=== PATIENT | female | born 1960 | race African-American/Black ===

== ENCOUNTER 2017-09-20 06:37 | Emergency (ER) | payer MEDICAID ==
[~2017-09-20] VITALS: Ht 162.6 cm; Wt 77.0 kg
[~2017-09-20 06:37] MED LIST: AMLO10TA4 PO; ATOR80TA PO; GABA-531 PO; LISI-604 PO; METF500T4 PO; NITR0.4T49 SL; TRAM50TA3 PO
[2017-09-20] MEDS ORDERED: IBUPROFEN 800MG TABLET PO ONE (08:00)
[2017-09-20] MEDS ORDERED: ONDANSETRON HCL 4MG/2ML VIAL IV STA (08:50)
[2017-09-20] MEDS ORDERED: MORPHINE SULFATE 4 MG/ML CPJ (NOT FOR IM USE) IV STA (08:50)
[2017-09-20 09:19] LABS: BASOPHILS % 0.4 % (0.0-2.0); HEMATOCRIT. 40.2 % (36.0-48.0); HEMOGLOBIN. 13.2 g/dL (12.0-16.0); LYMPHOCYTES % 13.4 % (20.0-50.0); MEAN CORPUSCULAR HEMOGLOBIN 28.3 pg (28.0-32.0); MEAN CORPUSCULAR VOLUME 85.9 fL (81.0-99.0); MEAN PLATELET VOLUME 8.8 fl (7.4-10.4); MONOCYTES % 4.2 % (2.0-8.0); PLATELET 297 x1000/uL (130-400); RED BLOOD CELL COUNT 4.68 mill/uL (4.2-5.4); RED CELL DISTRIBUTION WIDTH 15.2 % (11.6-14.6)
[2017-09-20 09:26] LABS: CHLORIDE 111 mEq/L (98-107)
[2017-09-20 09:29] LABS: PARTIAL THROMBOPLASTIN TIME 24.8 sec (23.4-31.0); PROTHROMBIN TIME 10.5 sec (9.4-11.6)
[2017-09-20] MEDS ORDERED: CLONIDINE 0.1MG TABLET PO ONE (11:45)
[2017-09-20 11:47] LABS: *AMPHETAMINES SCREEN URINE NEGATIVE (NEGATIVE); *BARBITURATES SCREEN URINE NEGATIVE (NEGATIVE); *COCAINE SCREEN URINE NEGATIVE (NEGATIVE)
[2017-09-20 11:48] VITALS: BP 180/87
[2017-09-20 11:48] LABS: *BENZODIAZEPINES SCREEN URINE NEGATIVE (NEGATIVE); CANNABINOID URINE SCREEN PRESUMTIVE POSITIVE (NEGATIVE); METHADONE URINE SCREEN NEGATIVE (NEGATIVE); OPIATES URINE SCREEN NEGATIVE (NEGATIVE); PHENCYCLIDINE URINE SCREEN NEGATIVE (NEGATIVE)
== END 2017-09-20 12:00 | disposition short-term general hospital (02) ==
LOC: ER 06:37
DX: S50.12XA Contusion of left forearm, initial encounter (principal); I11.9 Hypertensive heart disease without heart failure; E11.9 Type 2 diabetes mellitus without complications; F17.200 Nicotine dependence, unspecified, uncomplicated; Z79.84 Long term (current) use of oral hypoglycemic drugs; Z90.49 Acquired absence of other specified parts of digestive tract; Y00.XXXA Assault by blunt object, initial encounter; Y93.89 Activity, other specified; Y92.018 Other place in single-family (private) house as the place of occurrence of the external cause
CPT/HCPCS: 36415; 73080; 73090; 80048; 80305; 81025; 85025; 85610; 85730; 96374; 96375; 99291; G0482; J2270; J2405

== ENCOUNTER 2018-08-28 11:07 | Inpatient (IN) | payer MEDICAID ==
[~2018-08-28] VITALS: Ht 160 cm; Wt 80.1 kg
[~2018-08-28 11:07] MED LIST changes: +METF-414 PO; -METF500T4 PO
[2018-08-28] MEDS ORDERED: MORPHINE SULFATE 4 MG/ML CPJ (NOT FOR IM USE) IV ONE (12:00)
[2018-08-28 12:21] LABS: BASOPHILS % 1.5 % (0.0-2.0); CHLORIDE 115 mEq/L (98-107); EOSINOPHILS % 4.9 % (0.0-5.0); HEMATOCRIT. 37.9 % (36.0-48.0); HEMOGLOBIN. 12.4 g/dL (12.0-16.0); LYMPHOCYTES % 43.9 % (20.0-50.0); MEAN CORPUSCULAR HEMOGLOBIN 28.2 pg (28.0-32.0); MEAN CORPUSCULAR VOLUME 86.1 fL (81.0-99.0); MEAN PLATELET VOLUME 8.4 fl (7.4-10.4); MONOCYTES % 6.4 % (2.0-8.0); NEUTROPHILS % 43.3 % (40.0-76.0); PLATELET 309 x1000/uL (130-400); RED CELL DISTRIBUTION WIDTH 15.7 % (11.6-14.6)
[2018-08-28 14:22] LABS: CLARITY URINE CLOUDY (CLEAR); COLOR URINE YELLOW (YELLOW); KETONES URINE 1+ (NEGATIVE); LEUKOCYTE ESTERASE URINE NEGATIVE (NEGATIVE); NITRITE URINE NEGATIVE (NEGATIVE); OCCULT BLOOD URINE NEGATIVE (NEGATIVE); PROTEIN URINE 1+ (NEGATIVE); SPECIFIC GRAVITY URINE 1.023 (1.005-1.030)
[2018-08-28] MEDS ORDERED: ASPIRIN 325MG EC TABLET PO NR (14:45)
[2018-08-28] MEDS ORDERED: KETOROLAC 30MG/ML VIAL IV NR (14:45)
[2018-08-28] MEDS ORDERED: ZOLPIDEM TARTRATE 5MG TABLET PO PRN (18:00)
[2018-08-28] MEDS ORDERED: ACETAMINOPHEN 325MG TABLET PO PRN (18:00)
[2018-08-28] MEDS ORDERED: CLONIDINE 0.1MG TABLET PO PRN (18:00)
[2018-08-28] MEDS ORDERED: ONDANSETRON HCL 4MG/2ML INJ IV PRN (18:00)
[2018-08-28 18:55] LABS: *AMPHETAMINES SCREEN URINE NEGATIVE (NEGATIVE); *BARBITURATES SCREEN URINE NEGATIVE (NEGATIVE); CANNABINOID URINE SCREEN PRESUMTIVE POSITIVE (NEGATIVE); PHENCYCLIDINE URINE SCREEN NEGATIVE (NEGATIVE)
[2018-08-28 18:56] LABS: *BENZODIAZEPINES SCREEN URINE NEGATIVE (NEGATIVE); *COCAINE SCREEN URINE NEGATIVE (NEGATIVE); METHADONE URINE SCREEN NEGATIVE (NEGATIVE); OPIATES URINE SCREEN PRESUMTIVE POSITIVE (NEGATIVE)
[2018-08-28] MEDS: MORPHINE SULFATE 4 MG/ML CPJ (NOT FOR IM USE) IV PRN (19:41)
[2018-08-28] MEDS ORDERED: AMLODIPINE 5MG TABLET PO SCH (20:17)
[2018-08-28] MEDS ORDERED: HYDRALAZINE HCL 50MG TABLET PO NR (21:15)
[2018-08-29] MEDS: MORPHINE SULFATE 4 MG/ML CPJ (NOT FOR IM USE) IV PRN ×4 (01:24→21:38)
[2018-08-29 02:30] VITALS: BP 157/78
[2018-08-29 04:00] VITALS: BP 148/71
[2018-08-29 08:16] VITALS: BP 156/84
[2018-08-29] MEDS: AMLODIPINE 5MG TABLET PO SCH ×2 (09:11→21:08)
[2018-08-29] MEDS: HYDRALAZINE HCL 50MG TABLET PO SCH ×2 (09:16→21:00)
[2018-08-29] MEDS ORDERED: INFLUENZA VIRUS VACCINE(AFLURIA) 0.5ML SYR IM ONE (10:00)
[2018-08-29 10:19] LABS: BASOPHILS % 0.2 % (0.0-2.0); EOSINOPHILS % 6.3 % (0.0-5.0); HEMATOCRIT. 36.7 % (36.0-48.0); HEMOGLOBIN. 11.9 g/dL (12.0-16.0); LYMPHOCYTES % 35.9 % (20.0-50.0); MEAN CORPUSCULAR HEMOGLOBIN 28.5 pg (28.0-32.0); MEAN CORPUSCULAR VOLUME 87.9 fL (81.0-99.0); MEAN PLATELET VOLUME 8.5 fl (7.4-10.4); MONOCYTES % 8.7 % (2.0-8.0); NEUTROPHILS % 48.9 % (40.0-76.0); PLATELET 284 x1000/uL (130-400); RED BLOOD CELL COUNT 4.18 mill/uL (4.2-5.4); RED CELL DISTRIBUTION WIDTH 15.7 % (11.6-14.6)
[2018-08-29 10:26] LABS: CHLORIDE 114 mEq/L (98-107)
[2018-08-29 11:30] VITALS: BP 148/83
[2018-08-29] MEDS ORDERED: DEXTROSE 50% WATER 50ML SYRINGE IV PRN (11:45)
[2018-08-29] MEDS ORDERED: DIPHENHYDRAMINE 50MG/ML VIAL IV PRN (11:45)
[2018-08-29] MEDS: INSULIN LISPRO 100 UNITS/ML SUBCUT SCH ×3 (12:19→21:00)
[2018-08-29] MEDS: BLOOD SUGAR DIAGNOSTIC STRIP TEST SCH ×3 (12:19→21:00)
[2018-08-29 12:21] LABS: T4 FREE 0.83 ng/dL (0.76-1.46)
[2018-08-29] MEDS: LISINOPRIL 10MG TABLET PO SCH ×2 (13:36→21:00)
[2018-08-29 15:55] VITALS: BP 124/76
[2018-08-29 20:08] VITALS: BP 123/51
[2018-08-29] MEDS: METOPROLOL TARTRATE 25MG TABLET PO SCH (21:00)
[2018-08-29] MEDS: ATORVASTATIN CALCIUM 40MG TABLET PO SCH (21:08)
[2018-08-30] VITALS: BP 141/64
[2018-08-30 04:00] VITALS: BP 138/66
[2018-08-30] MEDS: BLOOD SUGAR DIAGNOSTIC STRIP TEST SCH ×4 (06:07→21:00)
[2018-08-30] MEDS: OMEPRAZOLE 20MG CAPSULE EXTENDED RELEASE PO SCH (06:11)
[2018-08-30] MEDS: HYDROCODONE/ACETAMINOPHEN 5/325MG TABLET PO PRN (06:16)
[2018-08-30 06:31] LABS: BASOPHILS % 0.7 % (0.0-2.0); EOSINOPHILS % 6.5 % (0.0-5.0); HEMATOCRIT. 38.2 % (36.0-48.0); HEMOGLOBIN. 12.5 g/dL (12.0-16.0); LYMPHOCYTES % 33.7 % (20.0-50.0); MEAN CORPUSCULAR HEMOGLOBIN 28.2 pg (28.0-32.0); MEAN CORPUSCULAR VOLUME 86.5 fL (81.0-99.0); MEAN PLATELET VOLUME 8.4 fl (7.4-10.4); MONOCYTES % 9.5 % (2.0-8.0); NEUTROPHILS % 49.6 % (40.0-76.0); PLATELET 300 x1000/uL (130-400); RED BLOOD CELL COUNT 4.42 mill/uL (4.2-5.4); RED CELL DISTRIBUTION WIDTH 16.1 % (11.6-14.6)
[2018-08-30 06:33] LABS: CHLORIDE 114 mEq/L (98-107)
[2018-08-30] MEDS: INSULIN LISPRO 100 UNITS/ML SUBCUT SCH ×4 (07:38→21:00)
[2018-08-30 08:00] VITALS: BP 153/83
[2018-08-30] MEDS: METOPROLOL TARTRATE 25MG TABLET PO SCH (08:09)
[2018-08-30] MEDS: LISINOPRIL 10MG TABLET PO SCH ×2 (08:10→21:35)
[2018-08-30] MEDS: HYDRALAZINE HCL 50MG TABLET PO SCH ×2 (08:10→21:31)
[2018-08-30] MEDS: AMLODIPINE 5MG TABLET PO SCH ×2 (08:10→21:30)
[2018-08-30] MEDS: MORPHINE SULFATE 4 MG/ML CPJ (NOT FOR IM USE) IV PRN ×2 (11:49→22:04)
[2018-08-30 12:00] VITALS: BP 140/75
[2018-08-30 15:28] VITALS: BP 139/78
[2018-08-30 20:00] VITALS: BP 152/75
[2018-08-30] MEDS: ATORVASTATIN CALCIUM 40MG TABLET PO SCH (21:33)
[2018-08-30] MEDS: METOPROLOL TARTRATE 50MG TABLET PO SCH (21:33)
[2018-08-31] VITALS: BP 133/65
[2018-08-31 04:00] VITALS: BP 146/72
[2018-08-31] MEDS: OMEPRAZOLE 20MG CAPSULE EXTENDED RELEASE PO SCH (06:40)
[2018-08-31 07:05] LABS: BASOPHILS % 0.6 % (0.0-2.0); EOSINOPHILS % 6.9 % (0.0-5.0); HEMATOCRIT. 39.8 % (36.0-48.0); HEMOGLOBIN. 12.9 g/dL (12.0-16.0); LYMPHOCYTES % 36.2 % (20.0-50.0); MEAN CORPUSCULAR HEMOGLOBIN 28.4 pg (28.0-32.0); MEAN CORPUSCULAR VOLUME 87.1 fL (81.0-99.0); MEAN PLATELET VOLUME 8.9 fl (7.4-10.4); NEUTROPHILS % 48.3 % (40.0-76.0); PLATELET 320 x1000/uL (130-400); RED BLOOD CELL COUNT 4.56 mill/uL (4.2-5.4); RED CELL DISTRIBUTION WIDTH 15.8 % (11.6-14.6)
[2018-08-31] MEDS: BLOOD SUGAR DIAGNOSTIC STRIP TEST SCH ×4 (07:35→21:15)
[2018-08-31] MEDS: INSULIN LISPRO 100 UNITS/ML SUBCUT SCH ×4 (07:50→21:00)
[2018-08-31 08:00] VITALS: BP 170/79
[2018-08-31] MEDS: HYDRALAZINE HCL 50MG TABLET PO SCH ×2 (08:14→21:11)
[2018-08-31] MEDS: METOPROLOL TARTRATE 50MG TABLET PO SCH ×2 (08:14→21:19)
[2018-08-31] MEDS: AMLODIPINE 5MG TABLET PO SCH ×2 (08:14→21:36)
[2018-08-31] MEDS: LISINOPRIL 10MG TABLET PO SCH (08:15)
[2018-08-31] MEDS: MORPHINE SULFATE 4 MG/ML CPJ (NOT FOR IM USE) IV PRN ×2 (08:25→17:44)
[2018-08-31 12:00] VITALS: BP 135/55
[2018-08-31] MEDS: HYDROCODONE/ACETAMINOPHEN 5/325MG TABLET PO PRN ×2 (12:18→21:15)
[2018-08-31 16:00] VITALS: BP 145/79
[2018-08-31 20:00] VITALS: BP 134/61
[2018-08-31] MEDS: ATORVASTATIN CALCIUM 40MG TABLET PO SCH (21:11)
[2018-08-31] MEDS: LISINOPRIL 20MG TABLET PO SCH (21:17)
[2018-09-01] VITALS: BP 128/65
[2018-09-01 04:00] VITALS: BP 130/61
[2018-09-01] MEDS: MORPHINE SULFATE 4 MG/ML CPJ (NOT FOR IM USE) IV PRN (04:00)
[2018-09-01 06:58] LABS: BASOPHILS % 0.4 % (0.0-2.0); HEMATOCRIT. 39.1 % (36.0-48.0); HEMOGLOBIN. 12.8 g/dL (12.0-16.0); MEAN CORPUSCULAR HEMOGLOBIN 28.3 pg (28.0-32.0); MEAN CORPUSCULAR VOLUME 86.6 fL (81.0-99.0); MEAN PLATELET VOLUME 8.7 fl (7.4-10.4); MONOCYTES % 7.2 % (2.0-8.0); NEUTROPHILS % 41.4 % (40.0-76.0); PLATELET 302 x1000/uL (130-400); RED BLOOD CELL COUNT 4.52 mill/uL (4.2-5.4); RED CELL DISTRIBUTION WIDTH 15.7 % (11.6-14.6)
[2018-09-01] MEDS: BLOOD SUGAR DIAGNOSTIC STRIP TEST SCH ×2 (07:20→11:56)
[2018-09-01 07:49] VITALS: BP 116/77
[2018-09-01] MEDS: INSULIN LISPRO 100 UNITS/ML SUBCUT SCH ×2 (07:50→12:50)
[2018-09-01] MEDS ORDERED: FAMOTIDINE 20MG TABLET PO SCH (09:00)
[2018-09-01] MEDS: LISINOPRIL 20MG TABLET PO SCH (09:11)
[2018-09-01] MEDS: AMLODIPINE 5MG TABLET PO SCH (09:11)
[2018-09-01] MEDS: METOPROLOL TARTRATE 50MG TABLET PO SCH (09:11)
[2018-09-01] MEDS: HYDROCODONE/ACETAMINOPHEN 5/325MG TABLET PO PRN ×2 (09:12→14:45)
[2018-09-01] MEDS: HYDRALAZINE HCL 50MG TABLET PO SCH (09:12)
[2018-09-01 12:00] VITALS: BP 133/88
[2018-09-01 15:06] VITALS: BP 130/76
[2018-09-01 16:00] VITALS: BP 150/83
== END 2018-09-01 17:28 | disposition home or self-care (01) | DRG 199 ==
LOC: ER 11:07 → 6WST 14:11 → ENRESERV 08-29 01:11
PROVIDERS: ADMIT Internal Medicine; ATTEND Internal Medicine
DX: I16.0 Hypertensive urgency (principal); E87.0 Hyperosmolality and hypernatremia; E11.319 Type 2 diabetes mellitus with unspecified diabetic retinopathy without macular edema; E87.8 Other disorders of electrolyte and fluid balance, not elsewhere classified; E66.9 Obesity, unspecified; E78.5 Hyperlipidemia, unspecified; E87.6 Hypokalemia; I10 Essential (primary) hypertension; J44.9 Chronic obstructive pulmonary disease, unspecified; Z87.891 Personal history of nicotine dependence; J45.909 Unspecified asthma, uncomplicated; Z82.49 Family history of ischemic heart disease and other diseases of the circulatory system; Z90.49 Acquired absence of other specified parts of digestive tract; M10.9 Gout, unspecified; Z71.3 Dietary counseling and surveillance; Z68.31 Body mass index [BMI] 31.0-31.9, adult; Z79.84 Long term (current) use of oral hypoglycemic drugs
CPT/HCPCS: 36415; 70551; 73502; 80048; 80061; 80305; 82962; 83036; 84146; 84439; 84443; 84481; 84484; 90686; 93005; 93306; 93970; 96374; 96375; 97116; 97162; 99285; J1815; J1885; J2270; A4315

== ENCOUNTER 2019-03-01 05:34 | Inpatient (IN) | payer MEDICAID ==
[~2019-03-01] VITALS: Ht 160 cm; Wt 74.4 kg
[~2019-03-01 05:34] MED LIST changes: -AMLO10TA4 PO; -ATOR80TA PO; -LISI-604 PO
[2019-03-01] MEDS ORDERED: SODIUM CHLORIDE 0.9% 1,000 ML IV ONE (06:52)
[2019-03-01] MEDS ORDERED: OXYCODONE HCL/ACETAMINOPHEN 5/325MG TABLET PO ONE (07:00)
[2019-03-01] MEDS ORDERED: KETOROLAC 30MG/ML VIAL IV ONE (07:00)
[2019-03-01 07:27] LABS: EOSINOPHILS % 3.3 % (0.0-5.0); HEMATOCRIT. 34.6 % (36.0-48.0); HEMOGLOBIN. 11.4 g/dL (12.0-16.0); LYMPHOCYTES % 30.2 % (20.0-50.0); MEAN CORPUSCULAR HEMOGLOBIN 28.7 pg (28.0-32.0); MEAN PLATELET VOLUME 8.9 fl (7.4-10.4); MONOCYTES % 7.9 % (2.0-8.0); NEUTROPHILS % 57.6 % (40.0-76.0); PLATELET 299 x1000/uL (130-400); RED BLOOD CELL COUNT 3.98 mill/uL (4.2-5.4); RED CELL DISTRIBUTION WIDTH 15.3 % (11.6-14.6)
[2019-03-01 07:30] LABS: CHLORIDE 110 mEq/L (98-107)
[2019-03-01] MEDS ORDERED: POTASSIUM CHLORIDE 20MEQ TABLET SR PO ONE (08:15)
[2019-03-01] MEDS ORDERED: HYDROCHLOROTHIAZIDE 25MG TABLET PO ONE (08:30)
[2019-03-01] MEDS ORDERED: HYDRALAZINE 20MG/ML VIAL IV ONE (08:30)
[2019-03-01] MEDS ORDERED: ACETAMINOPHEN 325MG TABLET PO PRN (09:30)
[2019-03-01] MEDS ORDERED: ONDANSETRON HCL 4MG/2ML INJ IV PRN (09:30)
[2019-03-01] MEDS ORDERED: AMLODIPINE 5MG TABLET PO NR (09:45)
[2019-03-01] MEDS ORDERED: POTASSIUM CHLORIDE 20MEQ TABLET SR PO NR (11:15)
[2019-03-01] MEDS: HYDRALAZINE HCL 100MG TABLET PO SCH ×2 (12:50→21:26)
[2019-03-01] MEDS: HYDROCODONE/ACETAMINOPHEN 5/325MG TABLET PO PRN ×2 (12:50→20:11)
[2019-03-01] MEDS: SODIUM CHLORIDE 0.9% 1,000 ML IV SCH (12:51)
[2019-03-01 15:16] VITALS: BP 155/92
[2019-03-01 16:00] VITALS: BP 161/88
[2019-03-01 17:20] LABS: CLARITY URINE CLEAR (CLEAR); COLOR URINE YELLOW (YELLOW); KETONES URINE NEGATIVE (NEGATIVE); LEUKOCYTE ESTERASE URINE NEGATIVE (NEGATIVE); NITRITE URINE NEGATIVE (NEGATIVE); OCCULT BLOOD URINE NEGATIVE (NEGATIVE); PROTEIN URINE NEGATIVE (NEGATIVE); SPECIFIC GRAVITY URINE 1.009 (1.005-1.030); UROBILINOGEN URINE 0.2 E.U./dL (0.2-1.0)
[2019-03-01 17:44] LABS: *AMPHETAMINES SCREEN URINE NEGATIVE (NEGATIVE); *BARBITURATES SCREEN URINE NEGATIVE (NEGATIVE); *BENZODIAZEPINES SCREEN URINE NEGATIVE (NEGATIVE)
[2019-03-01 17:45] LABS: *COCAINE SCREEN URINE NEGATIVE (NEGATIVE); CANNABINOID URINE SCREEN PRESUMTIVE POSITIVE (NEGATIVE); METHADONE URINE SCREEN NEGATIVE (NEGATIVE); OPIATES URINE SCREEN NEGATIVE (NEGATIVE); PHENCYCLIDINE URINE SCREEN NEGATIVE (NEGATIVE)
[2019-03-01 20:00] VITALS: BP 153/76
[2019-03-01] MEDS ORDERED: HYDRALAZINE HCL 100MG TABLET PO SCH (21:00)
[2019-03-01] MEDS: ATORVASTATIN CALCIUM 40MG TABLET PO SCH (21:25)
[2019-03-01] MEDS: AMLODIPINE 5MG TABLET PO SCH (21:27)
[2019-03-02] VITALS (7 sets, daily range): BP systolic 126–180; BP diastolic 61–88
[2019-03-02] MEDS: HYDROCODONE/ACETAMINOPHEN 5/325MG TABLET PO PRN ×4 (03:06→21:33)
[2019-03-02] MEDS: CLONIDINE 0.1MG TABLET PO PRN ×2 (03:07→16:09)
[2019-03-02] MEDS: HYDRALAZINE HCL 100MG TABLET PO SCH ×3 (05:47→21:24)
[2019-03-02] MEDS: SODIUM CHLORIDE 0.9% 1,000 ML IV SCH (05:49)
[2019-03-02 07:00] LABS: BASOPHILS % 0.9 % (0.0-2.0); EOSINOPHILS % 4.4 % (0.0-5.0); LYMPHOCYTES % 29.9 % (20.0-50.0); MEAN CORPUSCULAR HEMOGLOBIN 28.5 pg (28.0-32.0); MEAN CORPUSCULAR VOLUME 88.3 fL (81.0-99.0); MEAN PLATELET VOLUME 8.9 fl (7.4-10.4); MONOCYTES % 6.6 % (2.0-8.0); NEUTROPHILS % 58.2 % (40.0-76.0); PLATELET 280 x1000/uL (130-400); RED BLOOD CELL COUNT 4.19 mill/uL (4.2-5.4); RED CELL DISTRIBUTION WIDTH 15.6 % (11.6-14.6)
[2019-03-02] MEDS: AMLODIPINE 5MG TABLET PO SCH ×2 (09:46→21:23)
[2019-03-02] MEDS: CLONIDINE 0.1MG TABLET PO SCH ×2 (14:00→23:06)
[2019-03-02] MEDS: ATORVASTATIN CALCIUM 40MG TABLET PO SCH (21:23)
[2019-03-03] VITALS: BP_SYST 130; BP_SYST 146; BP_SYST 156; BP_DIAS 75; BP_DIAS 77; BP_DIAS 81
[2019-03-03] MEDS: SODIUM CHLORIDE 0.9% 1,000 ML IV SCH ×2 (03:15→05:06)
[2019-03-03 04:00] VITALS: BP 143/79
[2019-03-03] MEDS: HYDRALAZINE HCL 100MG TABLET PO SCH ×4 (04:29→20:30)
[2019-03-03] MEDS: CLONIDINE 0.1MG TABLET PO SCH ×3 (05:13→21:19)
[2019-03-03] MEDS: HYDROCODONE/ACETAMINOPHEN 5/325MG TABLET PO PRN ×4 (05:14→21:32)
[2019-03-03] MEDS: AMLODIPINE 5MG TABLET PO SCH ×2 (09:36→21:00)
[2019-03-03 12:00] VITALS: BP 126/68
[2019-03-03 16:00] VITALS: BP 152/90
[2019-03-03 20:00] VITALS: BP 106/70
[2019-03-03] MEDS: ATORVASTATIN CALCIUM 40MG TABLET PO SCH (21:21)
[2019-03-04] VITALS: BP 116/61
[2019-03-04 04:00] VITALS: BP 130/67
[2019-03-04] MEDS: HYDRALAZINE HCL 100MG TABLET PO SCH ×3 (04:30→20:16)
[2019-03-04] MEDS: SODIUM CHLORIDE 0.9% 1,000 ML IV SCH ×2 (05:38→23:38)
[2019-03-04] MEDS: CLONIDINE 0.1MG TABLET PO SCH ×3 (05:52→21:23)
[2019-03-04] MEDS: HYDROCODONE/ACETAMINOPHEN 5/325MG TABLET PO PRN ×4 (05:52→21:23)
[2019-03-04 08:00] VITALS: BP 143/71
[2019-03-04] MEDS: AMLODIPINE 5MG TABLET PO SCH ×2 (09:38→20:16)
[2019-03-04 12:00] VITALS: BP 110/71
[2019-03-04 16:00] VITALS: BP 118/79
[2019-03-04 20:00] VITALS: BP_SYST 114; BP_SYST 161; BP_DIAS 65; BP_DIAS 88
[2019-03-04] MEDS: ATORVASTATIN CALCIUM 40MG TABLET PO SCH (21:22)
[2019-03-05] VITALS: BP 134/65
[2019-03-05] MEDS: HYDROCODONE/ACETAMINOPHEN 5/325MG TABLET PO PRN ×4 (02:24→21:43)
[2019-03-05 04:00] VITALS: BP 106/70
[2019-03-05] MEDS: HYDRALAZINE HCL 100MG TABLET PO SCH ×3 (04:30→21:42)
[2019-03-05] MEDS: CLONIDINE 0.1MG TABLET PO SCH ×3 (05:34→23:12)
[2019-03-05 07:53] VITALS: BP 143/70
[2019-03-05] MEDS: AMLODIPINE 5MG TABLET PO SCH ×2 (08:59→21:43)
[2019-03-05 12:35] VITALS: BP 129/55
[2019-03-05 16:19] VITALS: BP 137/66
[2019-03-05 20:00] VITALS: BP 172/82
[2019-03-05] MEDS: ATORVASTATIN CALCIUM 40MG TABLET PO SCH (21:43)
[2019-03-06 00:27] VITALS: BP 151/95
[2019-03-06 02:48] VITALS: BP 146/82
[2019-03-06] MEDS: HYDROCODONE/ACETAMINOPHEN 5/325MG TABLET PO PRN (02:51)
[2019-03-06 04:00] VITALS: BP 135/71
[2019-03-06] MEDS: HYDRALAZINE HCL 100MG TABLET PO SCH (05:02)
[2019-03-06 05:10] VITALS: BP 152/81
[2019-03-06] MEDS: CLONIDINE 0.1MG TABLET PO SCH (05:37)
== END 2019-03-06 06:05 | disposition home or self-care (01) | DRG 48 ==
LOC: ER 05:34 → 7WST 09:16 → ENRESERV 09:58
PROVIDERS: ADMIT Internal Medicine; ATTEND Internal Medicine
DX: G90.8 Other disorders of autonomic nervous system (principal); N17.0 Acute kidney failure with tubular necrosis; E87.6 Hypokalemia; E87.8 Other disorders of electrolyte and fluid balance, not elsewhere classified; E11.9 Type 2 diabetes mellitus without complications; I16.0 Hypertensive urgency; E78.5 Hyperlipidemia, unspecified; F12.90 Cannabis use, unspecified, uncomplicated; I10 Essential (primary) hypertension; J45.909 Unspecified asthma, uncomplicated; Z90.49 Acquired absence of other specified parts of digestive tract; Z79.899 Other long term (current) drug therapy; Z79.84 Long term (current) use of oral hypoglycemic drugs
CPT/HCPCS: 36415; 71045; 73502; 80048; 80305; 81003; 93306; 97116; 97162; 99291; J0360; J1885; J7030

== ENCOUNTER 2019-04-11 12:03 | Emergency (ER) | payer MEDICAID ==
[~2019-04-11] VITALS: Ht 160 cm; Wt 78.0 kg
[2019-04-11 12:11] VITALS: BP 168/95
[2019-04-11] MEDS ORDERED: TRAMADOL 50MG TABLET PO ONE (13:00)
== END 2019-04-11 13:15 | disposition home or self-care (01) ==
LOC: ER 12:03
DX: M79.10 Myalgia, unspecified site (principal); Z76.0 Encounter for issue of repeat prescription; E11.9 Type 2 diabetes mellitus without complications; I11.9 Hypertensive heart disease without heart failure; J45.909 Unspecified asthma, uncomplicated; Z90.49 Acquired absence of other specified parts of digestive tract; Z79.899 Other long term (current) drug therapy
CPT/HCPCS: 82962; 99283

== ENCOUNTER → 2020-07-05 | Outpatient (CLI) | payer MEDICAID ==
[~2020-07-05] MED LIST changes: +ALBU90AE INH; +AMLO10TA4 PO; +ATOR20TA PO; +DULO30CA52 PO; -GABA-531 PO; +GABA-532 PO; +HYDR-4135 PO; +LISI2.5T47 PO; -TRAM50TA3 PO
== END | disposition home or self-care (01) ==
LOC: RAD 13:11
PROVIDERS: ATTEND Neurological Surgery
DX: M46.02 Spinal enthesopathy, cervical region (principal); M54.2 Cervicalgia; Z98.890 Other specified postprocedural states
CPT/HCPCS: 72052